=== PATIENT | female | born 1985 | race Caucasian/White ===

== ENCOUNTER 2017-10-29 08:15 | Day surgery (SDC) | payer OTHER ==
[~2017-10-29 08:15] MED LIST: CEFAZOLIN 1 GM/50 ML (PMX) 50 ML IVPB; SOD CHLORIDE 0.9% 1,000 ML IV
[2017-10-29] MEDS ORDERED: MEPERIDINE 100 MG INJ (10:26)
[2017-10-29] MEDS ORDERED: NEOSTIGMINE 3 MG/3 ML SYRINGE ×2 (10:26→11:37)
[2017-10-29] MEDS ORDERED: GLYCOPYRROLATE 0.4 MG INJ ×3 (10:26→11:37)
[2017-10-29] MEDS ORDERED: LIDOCAINE 2% (SDV) 5 ML INJ (10:26)
[2017-10-29] MEDS ORDERED: SUCCINYLCHOLINE CHLORIDE 100 MG/5 ML SYG IV (10:26)
[2017-10-29] MEDS ORDERED: PROPOFOL 20 ML (10:26)
[2017-10-29] MEDS ORDERED: ROCURONIUM 50 MG INJ (10:26)
[2017-10-29] MEDS ORDERED: OXYCODONE/ACETAMINOPHEN (5/325) TAB PO ×2 (11:00)
[2017-10-29] MEDS ORDERED: FENTAnyl 50 MCG/ML VIAL IV ×3 (11:00)
[2017-10-29] MEDS ORDERED: EPHEDrine SULFATE 50 MG/5 ML SYG IV (11:00)
[2017-10-29] MEDS ORDERED: LABETALOL HCL 20MG INJ IV (11:00)
[2017-10-29] MEDS ORDERED: METOCLOPRAMIDE 10 MG INJ IV (11:00)
[2017-10-29] MEDS ORDERED: MIDAZOLAM 1 MG/ML 2 ML INJ IV (11:00)
[2017-10-29] MEDS ORDERED: HYDROmorphONE 1 MG/5 ML IV SYRINGE IV ×3 (11:00)
[2017-10-29] MEDS ORDERED: hydrALAzine 20 MG INJ IV (11:00)
[2017-10-29] MEDS ORDERED: DIPHENHYDRAMINE 50 MG INJ IV (11:00)
[2017-10-29] MEDS ORDERED: MEPERIDINE 25 MG INJ IV (11:00)
[2017-10-29] MEDS ORDERED: ONDANSETRON 4 MG INJ IV (11:00)
[2017-10-29] MEDS: METHYLENE BLUE 1% 10 ML INJ (11:21)
[2017-10-29] MEDS: BUPIVACAINE 0.25% (MPF) 30 ML INJ (11:30)
[2017-10-29] MEDS: LIDOCAINE 1%/EPI 30 ML INJ (11:30)
[2017-10-29] MEDS ORDERED: ONDANSETRON 4 MG INJ (11:37)
[2017-10-29] MEDS ORDERED: CEFAZOLIN 1 GM INJ (11:37)
[2017-10-29] MEDS ORDERED: METOCLOPRAMIDE 10 MG INJ (11:37)
== END 2017-10-29 14:15 | disposition home or self-care (01) ==
LOC: SDS 08:15
DX: L05.91 Pilonidal cyst without abscess (principal); E66.01 Morbid (severe) obesity due to excess calories; Z68.41 Body mass index [BMI] 40.0-44.9, adult
CPT/HCPCS: 11771; 84703; 87070; 87075; 88304